=== PATIENT | female | born 1950 | race Caucasian/White ===

== ENCOUNTER 2017-06-13 22:44 | Emergency (ER) | payer MEDICARE, MEDICAID ==
[2017-06-13] MEDS ORDERED: HYDROCODONE/APAP 7.5/325MG TABLET PO ONE (22:59)
--- NOTE | 2017-06-13 23:05 | Emergency Department Record ---
History of Present Illness - General Chief Complaint: Fall Injury Stated Complaint: FALL Time Seen by Provider: 06/13/17 22:59 Source: Patient Mode of Arrival: Stretcher Limitations: No limitations - History of Present Illness Initial Comments: 66 yo female presents to ED with a CC of of left pain following a fall just prior to arrival. Patient reports that she fell walking down a short ramp at her home resulting in injury. Patient also reports striking the left side of her head on the ground, denies LOC or neck pain symptoms. Patient denies numbness, tingling, or weakness to the left UE. Patient also denies injury to the left elbow or shoulder on examination. MD Complaint: Fall Onset/Timin -: Minutes(s) Fall From: Standing When Fall Occurred: Just prior to arrival Fall Witnessed: No Place Fall Occurred: Home Loss of Consciousness: None Prolonged Down Time?: No Symptoms Prior to Fall: None Location - Extremities: Left: Forearm Severity: Moderate Severity scale (1-10): 8 Quality: Sharp, Stabbing Context: Tripped/slipped Associated Symptoms: Denies - [place] Coma Scale Eye Response: (4) Open spontaneously Motor Response: (6) Obeys commands Verbal Response: (5) Oriented [place] Total: 15 - Related Data Previous Rx's Medication Instructions Recorded Hydrocodone/Acetaminophen [Barton 1 each PO Q6H PRN #10 tablet 06/13/17 5-325 Tablet] Allergies Allergy/AdvReac Type Severity Reaction Status Date / Time amoxicillin [Amoxicillin] Allergy Severe ANAPHYLAXIS Verified 06/13/17 22:45 amoxicillin trihydrate Allergy Severe ANAPHYLAXIS Verified 06/13/17 22:45 [From Trimox] Travel Screening - Travel/Exposure Within Last 30 Days Have you traveled within the last 30 days?: No - Travel/Exposure Within Last Year Have you traveled outside the [place] in the last year?: No - Additonal Travel Details Have you been exposed to anyone with a communicable illness?: No - Travel Symptoms Symptom Screening: None Review of Systems Constitutional: Denies: Chills, Fever, Malaise, Night sweats Eyes: Denies: Eye discharge, Eye pain ENT: Denies: Congestion, Ear pain, Epistaxis Respiratory: Denies: Cough, Dyspnea Cardiovascular: Denies: Chest pain, Dyspnea on exertion Endocrine: Denies: Fatigue, Heat or cold intolerance Gastrointestinal: Denies: Abdominal pain, Nausea, Vomiting Genitourinary: Denies: Incontinence, Retention Musculoskeletal: Reports: Arthralgia (left wrist pain). 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?)) - GI Hx GI Disorders: Yes Hx Abdominal Pain: Yes (last 24 hrs-none now) Hx Pancreatitis: Yes (now) Hx Wt Loss/Wt Gain: Yes (60 lbs in last few yrs) - Hx Genitourinary Disorders: No Hx Bladder Problem: Yes (urgency) - ENDOCRINE Hx Endocrine Disorders: Yes Hx Thyroid Disease: Yes (HYPO) - MUSCULOSKELETAL Hx Musculoskeletal Disorders: Yes 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) - PSYCH Hx Psych Problems: No - HEMATOLOGY/ONCOLOGY Hx Hematology/Oncology Disorders: No Family Medical History Any Significant Family History?: Yes Family Hx Comment (NOT TO BE USED IN PLACE OF ITEMS BELOW): DIABETES Hx Cancer: Father Hx Dementia: Father, Mother Hx Diabetes: Mother Hx Heart Disease: Father Hx Resp Disorders: Father, Brother/Sister Hx Seizures: Brother/Sister Hx Stroke: Father *Stroke Comment: TIA Physical Exam - General General Appearance: Alert, Oriented x3, Cooperative, Moderate distress Limitations: No limitations - Head Head exam: Atraumatic, Normocephalic, Other (Mild TTP over the left temporal region) Head exam detail: negative: Abrasion, Contusion, Baxter's sign, General tenderness, Hematoma, Laceration - Eye Eye exam: Normal appearance. negative: Conjunctival injection, Periorbital swelling, Periorbital tenderness, Scleral icterus - ENT Ear exam: negative: Auricular hematoma, Auricular trauma Nasal Exam: negative: Active bleeding, Discharge, Dried blood, Foreign body Mouth exam: negative: Drooling, Laceration, Muffled voice, Tongue elevation - Neck Neck exam: Normal inspection. negative: Meningismus, Tenderness - Respiratory Respiratory exam: Normal lung sounds bilaterally. negative: Rales, Respiratory distress, Rhonchi, Stridor - Cardiovascular Cardiovascular Exam: Regular rate, Normal rhythm, Normal heart sounds Peripheral Pulses: 3+: Radial (L) - GI/Abdominal GI/Abdominal exam: Soft. negative: Rebound, Rigid, Tenderness - Rectal Rectal exam: Deferred - exam: Deferred - Extremities Extremities exam: Tenderness, Other (TTP Over the distal left forearm, no obvious deformity is present. Compartments of the forearm are soft on examination. strong distal radial pulse. No pain with palpation over the elbow/ shoulder, FROM of the fingers distally.). negative: Calf tenderness, Pedal edema - Back Back exam: Denies: CVA tenderness (R), CVA tenderness (L) - Neurological Neurological exam: Alert, Normal gait, Oriented X3 - Psychiatric Psychiatric exam: Normal affect, Normal mood - Skin Skin exam: Normal color. negative: Abrasion Type of lesion: negative: abrasion Course Vital Signs 06/13/17 22:45 Temperature 98.8 F Pulse Rate 79 Respiratory 22 Rate Blood Pressure 115/63 Pulse Ox 99 - Reevaluation(s) Reevaluation #1: 06/13/17 23:31 CT Brain: no acute process Left Wrist: Likely non-displaced distal radius fracture Patient was updated on all results, will place in splint with instructions to follow-up with Dr. Patel next week in the [facility]. Disposition Disposition: Discharge Clinical Impression: Distal radius fracture, left Qualifiers: Encounter type: initial encounter Fracture type: closed Fracture morphology: torus Qualified Code(s): S52.522A - Torus fracture of lower end of left radius, initial encounter for closed fracture Disposition: Home, Self-Care Condition: (2) Stable Instructions: Wrist Fracture in Adults (ED) Additional Instructions: Return to ED if your symptoms worsen or if you have any concerns. Barton as directed. Leave splint in place until seen by Dr. Patel next week. Follow-up in the [facility]ty [facility] next week as directed. Prescriptions: Hydrocodone/Acetaminophen [Barton 5-325 Tablet] 1 each PO Q6H PRN #10 tablet PRN Reason: Pain - Moderate (5-7) Referrals: ZACKERY PATEL [DOCTOR OF OSTEOPATH] - [facility]ics [Provider Group] Forms: Patient Portal Access Time of Disposition: 23:34 Quality - Quality Measures Quality Measures: N/A - Blood Pressure Screening Does Patient Have Any of the Following: No Blood Pressure Classification: Hypertensive Reading Systolic Measurement: 148 Diastolic Measurement: 74 Screening for High Blood Pressure: < Pre-Hypertensive BP, F/U Documented > [ [id number]] Pre-Hypertensive Follow-up Interventions: Referral to alternative/primary care provider.
--- NOTE | 2017-06-16 07:28 | CT SCAN REPORT ---
EXAM: HEAD CT HISTORY: FALL, HEAD INJURY. TECHNIQUE: Noncontrast head CT was obtained. Comparison: None. FINDINGS: The ventricles and subarachnoid spaces are unremarkable. There is no mass or mass effect. No intra or extraaxial hemorrhage. No CT evidence for large acute territorial infarct. No fracture or acute osseous abnormality. Minimal mucosal thickening is seen in the sphenoid sinus. IMPRESSION: UNREMARKABLE HEAD CT WITH NO ACUTE INTRACRANIAL PROCESS. JOB NUMBER: [id number] [facility]
--- NOTE | 2017-06-16 08:11 | RADIOLOGY REPORT ---
DATE: 06/14/2017. EXAM: LEFT WRIST. HISTORY: Pain. Fell today. TECHNIQUE: Four views of the left wrist. COMPARISON: None. ENCOUNTER: Initial. FINDINGS: Subtle areas of lucency are suggested in the distal radius. Nondisplaced fracture cannot be excluded. CT suggested for further assessment. The bones and joints otherwise are unremarkable. The joint spaces are well maintained. IMPRESSION: POSSIBLE NONDISPLACED FRACTURE OF THE DISTAL LEFT RADIUS. CT COULD BE PERFORMED FOR FURTHER ASSESSMENT. LEFT WRIST IS OTHERWISE UNREMARKABLE. JOB NUMBER: [id number] [facility]
== END 2017-06-14 00:04 | disposition home or self-care (01) ==
LOC: ER 22:44
DX: S52.522A Torus fracture of lower end of left radius, initial encounter for closed fracture (principal); R51 Headache; W01.0XXA Fall on same level from slipping, tripping and stumbling without subsequent striking against object, initial encounter; Y92.007 Garden or yard of unspecified non-institutional (private) residence as the place of occurrence of the external cause
CPT/HCPCS: 70450; 99283; 99284

== ENCOUNTER 2018-04-24 11:21 | Observation (INO) | payer MEDICARE, MEDICAID ==
[2018-04-24] MEDS ORDERED: NITROGLYCERIN 0.4MG SL TABLET #25 BTL SL PRN ×2 (11:37→17:18)
[2018-04-24] MEDS ORDERED: ASPIRIN 81 MG CHEWABLE TABLET PO ONE (11:37)
--- NOTE | 2018-04-24 11:48 | Emergency Department Record ---
History of Present Illness - General Chief Complaint: Chest Pain Stated Complaint: CHEST PAIN Time Seen by Provider: 04/24/18 11:24 Source: Patient Mode of Arrival: Ambulatory Limitations: No limitations - History of Present Illness Initial Comments: pt has had chest pain for 3 days that gets worse with inspiration and is getting worse today. it was 8/10 and now is 5/10. no trips, surgeries or leg pain recently. pt has fam hx and htn. MD Complaint: Chest pain Onset/Timin -: Days(s) Pain Location: Left chest Pain Radiation: Back Quality: Sharp Consistency: Constant Improves With: Nothing Worsens With: Inspiration, Movement Anginal Symptoms: Dyspnea Treatments Prior to Arrival: None - Related Data Home Medications Medication Instructions Recorded Confirmed Last Taken Magnesium 200 mg PO DAILY 04/24/18 04/24/18 04/24/18 [place]-3 Fatty Acids/Fish Oil [Fish 1 each PO DAILY 04/24/18 04/24/18 04/24/18 Oil 1,000 mg Capsule] Allergies Allergy/AdvReac Type Severity Reaction Status Date / Time amoxicillin [Amoxicillin] Allergy Severe ANAPHYLAXIS Verified 04/24/18 11:25 amoxicillin trihydrate Allergy Severe ANAPHYLAXIS Verified 04/24/18 11:25 [From Trimox] Travel Screening - Travel/Exposure Within Last 30 Days Have you traveled within the last 30 days?: No Review of Systems Reviewed: No additional complaints except as noted below Constitutional: Reports: As per HPI. Denies: Chills, Fever, Malaise, Night sweats, Weakness, Weight change Eyes: Reports: As per HPI. Denies: Eye discharge, Eye pain, Photophobia, Vision change ENT: Reports: As per HPI. Denies: Congestion, Dental pain, Ear pain, Epistaxis , Hearing loss, Throat pain Respiratory: Reports: As per HPI. Denies: Cough, Dyspnea, Hemoptysis, Stridor, Wheezes Cardiovascular: Reports: As per HPI. Denies: Arrhythmia, Chest pain, Dyspnea on exertion, Edema, Murmurs, Orthopnea, Palpitations, Paroxysmal nocturnal dyspnea, Rheumatic Fever, Syncope Endocrine: Reports: As per HPI. Denies: Fatigue, Heat or cold intolerance, Polydipsia, Polyuria Gastrointestinal: Reports: As per HPI. Denies: Abdominal pain, Constipation, Diarrhea, Hematemesis, Hematochezia, Melena, Nausea, Vomiting Genitourinary: Reports: As per HPI. Denies: Abnormal menses, Discharge, Dyspareunia, Dysuria, Frequency, Hematuria, Incontinence, Retention, Urgency Musculoskeletal: Reports: As per HPI. Denies: Arthralgia, Back pain, Gout, Joint swelling, Myalgia, Neck pain Skin: Reports: As per HPI. Denies: Bruising, Change in color, Change in hair/ nails, Lesions, Pruritus, Rash Neurological: Reports: As per HPI. Denies: Abnormal gait, Confusion, Headache, Numbness, Paresthesias, Seizure, Tingling, Tremors, Vertigo, Weakness Psychiatric: Reports: As per HPI. Denies: Anxiety, Auditory hallucinations, Depression, Homicidal thoughts, Suicidal thoughts, Visual hallucinations Hematological/Lymphatic: Reports: As per HPI. Denies: Anemia, Blood Clots, Easy bleeding, Easy bruising, Swollen glands Past Medical History - SOCIAL HISTORY Smoking Status: Never smoker Alcohol Use: None Drug Use: None - RESPIRATORY Hx Respiratory Disorders: Yes Hx Pneumonia: Yes (as kid) - CARDIOVASCULAR Hx Cardio Disorders: Yes Hx Hypertension: Yes - NEURO Hx Neuro Disorders: Yes Hx Headaches: Yes Hx Neuropathy: Yes - GI Hx GI Disorders: Yes Hx Abdominal Pain: Yes Hx Pancreatitis: Yes Hx Wt Loss/Wt Gain: Yes - Hx Genitourinary Disorders: No Hx Bladder Problem: Yes (urgency) - ENDOCRINE Hx Endocrine Disorders: Yes Hx Thyroid Disease: Yes (HYPO) - MUSCULOSKELETAL Hx Musculoskeletal Disorders: Yes 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) - PSYCH Hx Psych Problems: Yes Hx Anxiety: Yes - HEMATOLOGY/ONCOLOGY Hx Hematology/Oncology Disorders: No Family Medical History Any Significant Family History?: Yes Family Hx Comment (NOT TO BE USED IN PLACE OF ITEMS BELOW): DIABETES Hx Cancer: Father Hx Dementia: Father, Mother Hx Diabetes: Mother Hx Heart Disease: Father Hx Resp Disorders: Father, Brother/Sister Hx Seizures: Brother/Sister Hx Stroke: Father *Stroke Comment: TIA Physical Exam - General General Appearance: Alert, Oriented x3, Cooperative, Mild distress - Head Head exam: Normal inspection - Eye Eye exam: Normal appearance, PERRL, EOMI Pupils: Normal accommodation - ENT ENT exam: Normal exam, Mucous membranes moist, Normal external ear exam, Normal orophraynx Ear exam: Normal external inspection. negative: External canal tenderness Nasal Exam: Normal inspection. negative: Discharge, Sinus tenderness Mouth exam: Normal external inspection, Tongue normal Teeth exam: Normal inspection. negative: Dental caries Throat exam: Normal inspection. negative: Tonsillar erythema, Tonsillar exudate - Neck Neck exam: Normal inspection, Full ROM. negative: Tenderness - Respiratory Respiratory exam: Normal lung sounds bilaterally. negative: Respiratory distress - Cardiovascular Cardiovascular Exam: Regular rate, Normal rhythm, Normal heart sounds - GI/Abdominal GI/Abdominal exam: Soft, Normal bowel sounds. negative: Tenderness - Rectal Rectal exam: Deferred - exam: Deferred - Extremities Extremities exam: Normal inspection, Full ROM, Normal capillary refill. negative: Tenderness - Back Back exam: Reports: Normal inspection, Full ROM. Denies: Muscle spasm, Rash noted, Tenderness - Neurological Neurological exam: Alert, CN II-XII intact, Normal gait, Oriented X3 - Psychiatric Psychiatric exam: Normal affect, Normal mood - Skin Skin exam: Dry, Intact, Normal color, Warm Course - Reevaluation(s) Reevaluation #1: 04/24/18 15:59 pts pain is back up to 10 Medical Decision Making - Lab Data Result diagrams: 04/24/18 11:45 04/24/18 11:45 Disposition Disposition: Admit Clinical Impression: Pleural effusion Chest pain Qualifiers: Chest pain type: chest pain on breathing Qualified Code(s): R07.1 - Chest pain on breathing; R07.81 - Pleurodynia Disposition: Still a Patient at [facility] Decision to Admit: Admit from ER Decision to Admit Date: 04/24/18 Decision to Admit Time: 16:05 Forms: Patient Portal Access Quality - Quality Measures Quality Measures: N/A - Blood Pressure Screening Does Patient Have Any of the Following: Active Dx of HTN Blood Pressure Classification: Hypertensive Reading Systolic Measurement: 145 Diastolic Measurement: 73 Screening for High Blood Pressure: Patient Exclusion, Hx of HTN [G9744]
[2018-04-24 11:56] LABS: BASO % 0.5 % (0-6); EOS % 1.6 % (0-6); GRAN % 60.5 % (47-80); HEMATOCRIT 40.8 % (35.0-47.0); HEMOGLOBIN 13.6 gm/dl (11.6-16.0); MEAN CELL VOLUME 86.6 fl (81-97); MEAN CORPUSCULAR HEMOGLOBIN 28.9 pg (27-33); MEAN CORPUSCULAR HGB CONC 33.3 g/dl (32-36); MEAN PLATELET VOLUME 10.7 fl (7.4-10.4); MONO % 8.4 % (0-9); PLATELET COUNT 172 K/uL (130-400); RED BLOOD COUNT 4.71 M/uL (3.80-5.40); RED CELL DISTRIBUTION WIDTH 13.1 % (11.5-14.5); WHITE BLOOD COUNT W/O DIFF 5.7 K/uL (4.2-12.2)
[2018-04-24 12:23] LABS: BLOOD UREA NITROGEN 12 mg/dL (8-23); CREATININE 0.6 mg/dL (0.5-0.9); EST GLOMERULAR FILTRATION RATE > 60 mL/min
[2018-04-24 12:24] LABS: TOTAL PROTEIN 6.9 g/dL (6.6-8.7)
[2018-04-24 12:26] LABS: GLUCOSE,RANDOM 100 mg/dL (74-109)
[2018-04-24 12:28] LABS: ALT/SGPT 17 U/L (<33); AST/SGOT 26 U/L (10.0-35.0)
[2018-04-24 12:29] LABS: ALB/GLOB RATIO 1.5 (1.1-1.8); ALBUMIN 4.1 g/dL (4.0-5.0); ALKALINE PHOSPHATASE 76 U/L (35-104); CREATINE PHOSPHOKINASE 78 U/L (26-192)
[2018-04-24] MEDS ORDERED: ALBUTEROL SULFATE (0.083%) 2.5 MG/3 ML NEB INH ONE (12:48)
[2018-04-24] MEDS ORDERED: KETOROLAC 30 MG/ML VIAL IVP ONE (15:37)
[2018-04-24] MEDS ORDERED: ONDANSETRON HCL IV 4 MG/2 ML VIAL IVP PRN (17:18)
[2018-04-24] MEDS ORDERED: MORPHINE SULFATE 10 MG/ML VIAL IVP PRN (17:18)
[2018-04-24] MEDS ORDERED: LISINOPRIL 5 MG TABLET PO SCH (17:18)
[2018-04-24] MEDS ORDERED: TEMAZEPAM 15 MG CAPSULE PO PRN (17:18)
[2018-04-24] MEDS ORDERED: INDAPAMIDE 2.5 MG TABLET PO SCH (17:18)
[2018-04-24] MEDS: HYDROCODONE/APAP 5/325MG TABLET PO PRN (17:40)
[2018-04-24] MEDS: LEVOTHYROXINE SODIUM 100 MCG TABLET PO SCH (17:44)
[2018-04-24] MEDS: FUROSEMIDE 20 MG TABLET PO SCH (19:12)
[2018-04-24 20:21] LABS: CKMB 1.4 ng/mL (<3.77)
[2018-04-24] MEDS: DOCUSATE SODIUM 100 MG CAPSULE PO SCH (22:14)
[2018-04-25 04:25] LABS: CHOLESTEROL 136 mg/dL (<200); HDL CHOLESTEROL 71 mg/dL (40-60); TRIGLYCERIDES 40 mg/dL (<150); VLDL CHOLESTEROL 8 mg/dL (10.00-40.00)
[2018-04-25 04:29] LABS: CKMB 1.2 ng/mL (<3.77)
[2018-04-25] MEDS: HYDROCODONE/APAP 5/325MG TABLET PO PRN ×2 (06:24→11:23)
[2018-04-25] MEDS: LEVOTHYROXINE SODIUM 100 MCG TABLET PO SCH (06:25)
--- NOTE | 2018-04-25 09:21 | History & Physical ---
History of Present Illness - Date of Service Date of Service for History & Physical: 04/25/18 - History of Present Illness Admitting Diagnosis: chest pain, pleural effusion History of Present Illness: Mrs. Streeter is a 67 y/o female who presented to with acute onset left sided pleuritic chest pain. The patient says that her pain has been ongoing for the past three days but got worse yesterday, 8/10 in severity. The patient denies history of coronary artery disease and did not have palpitations, shortness of breath or radiation of her pain. The patient does have medical history of hypertension and sleep apnea. She does not smoke, use alcohol or use any drugs. Workup in the Ed revealed that the patient had a moderate left lung pleural effusion but no other acute process identified. CTA was not suggestive of pulmonary embolism and basic metabolic panel and CBC w/ diff were within normal limits. The patient is admitted to observation for IV diuresis and pain management. Vitals on admission: BP: 144/80 HR: 70 RR: 16 Sats: 94% RA T: 98 PCP: Dr. Troncoso Travel Screening - Travel/Exposure Within Last 30 Days Have you traveled within the last 30 days?: No - Travel/Exposure Within Last Year Have you traveled outside the [place] in the last year?: No - Additonal Travel Details Have you been exposed to anyone with a communicable illness?: No - Travel Symptoms Symptom Screening: None Review of Systems Constitutional: Reports: As per HPI. Denies: Chills, Fever, Malaise, Night sweats, Weakness, Weight change Eyes: Reports: As per HPI. Denies: Eye discharge, Eye pain, Photophobia, Vision change ENT: Reports: As per HPI. Denies: Congestion, Dental pain, Ear pain, Epistaxis , Hearing loss, Throat pain Respiratory: Reports: As per HPI. Denies: Cough, Dyspnea, Hemoptysis, Stridor, Wheezes Cardiovascular: Reports: As per HPI. Denies: Arrhythmia, Chest pain, Dyspnea on exertion, Edema, Murmurs, Orthopnea, Palpitations, Paroxysmal nocturnal dyspnea, Rheumatic Fever, Syncope Endocrine: Reports: As per HPI. Denies: Fatigue, Heat or cold intolerance, Polydipsia, Polyuria Gastrointestinal: Reports: As per HPI. Denies: Abdominal pain, Constipation, Diarrhea, Hematemesis, Hematochezia, Melena, Nausea, Vomiting Genitourinary: Reports: As per HPI. Denies: Abnormal menses, Discharge, Dyspareunia, Dysuria, Frequency, Hematuria, Incontinence, Retention, Urgency Musculoskeletal: Reports: As per HPI. Denies: Arthralgia, Back pain, Gout, Joint swelling, Myalgia, Neck pain Skin: Reports: As per HPI. Denies: Bruising, Change in color, Change in hair/ nails, Lesions, Pruritus, Rash Neurological: Reports: As per HPI. Denies: Abnormal gait, Confusion, Headache, Numbness, Paresthesias, Seizure, Tingling, Tremors, Vertigo, Weakness Psychiatric: Reports: As per HPI. Denies: Anxiety, Auditory hallucinations, Depression, Homicidal thoughts, Suicidal thoughts, Visual hallucinations Hematological/Lymphatic: Reports: As per HPI. Denies: Anemia, Blood Clots, Easy bleeding, Easy bruising, Swollen glands Past Medical History - SOCIAL HISTORY Smoking Status: Never smoker Alcohol Use: None Drug Use: None - RESPIRATORY Hx Respiratory Disorders: Yes Hx Pneumonia: Yes (as kid) - CARDIOVASCULAR Hx Cardio Disorders: Yes Hx Hypertension: Yes - NEURO Hx Neuro Disorders: Yes Hx Headaches: Yes Hx Neuropathy: Yes - GI Hx GI Disorders: Yes Hx Abdominal Pain: Yes Hx Pancreatitis: Yes Hx Wt Loss/Wt Gain: Yes (lost 85 pounds over 6 years) - Hx Genitourinary Disorders: No Hx Bladder Problem: Yes (urgency) - ENDOCRINE Hx Endocrine Disorders: Yes Hx Thyroid Disease: Yes (HYPO) - MUSCULOSKELETAL Hx Musculoskeletal Disorders: Yes 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) - PSYCH Hx Psych Problems: Yes Hx Anxiety: Yes - HEMATOLOGY/ONCOLOGY Hx Hematology/Oncology Disorders: No Family Medical History Any Significant Family History?: Yes Family Hx Comment (NOT TO BE USED IN PLACE OF ITEMS BELOW): DIABETES Hx Cancer: Father Hx Dementia: Father, Mother Hx Diabetes: Mother Hx Heart Disease: Father Hx Resp Disorders: Father, Brother/Sister Hx Seizures: Brother/Sister Hx Stroke: Father *Stroke Comment: TIA H&P Meds/Allergies - Allergies Allergies: Allergies Allergy/AdvReac Type Severity Reaction Status Date / Time amoxicillin [Amoxicillin] Allergy Severe ANAPHYLAXIS Verified 04/24/18 11:25 amoxicillin trihydrate Allergy Severe ANAPHYLAXIS Verified 04/24/18 11:25 [From Trimox] - Home Medications Home Medications Medication Instructions Recorded Confirmed Last Taken Magnesium 200 mg PO DAILY 04/24/18 04/24/18 04/24/18 [place]-3 Fatty Acids/Fish Oil [Fish 1 each PO DAILY 04/24/18 04/24/18 04/24/18 Oil 1,000 mg Capsule] - Active Medications Active Medications: Current Medications Hydrocodone Bitart/Acetaminophen ([place] 5mg/325mg) 1 each PO Q4H PRN PRN Reason: PAIN - MOD TO SEVERE (5-10) Last Admin: 04/25/18 06:24 Dose: 1 each Aspirin (Ecotrin (Ec)) 325 mg PO DAILY [facility] Docusate Sodium (Colace) 100 mg PO BID [facility] Last Admin: 04/24/18 22:14 Dose: Not Given Furosemide (Lasix) 20 mg PO BIDDIUR [facility] Last Admin: 04/24/18 19:12 Dose: 20 mg Indapamide (Lozol) 2.5 mg PO QD [facility] Last Admin: 04/24/18 17:43 Dose: Not Given Levothyroxine Sodium (Synthroid) 100 mcg PO DAILYTHY [facility] Last Admin: 04/25/18 06:25 Dose: 100 mcg Lisinopril (Zestril) 5 mg PO QD [facility] Last Admin: 04/24/18 17:44 Dose: Not Given Magnesium Oxide (Mag Ox) 200 mg PO DAILY [facility] Morphine Sulfate (Morphine Sulfate) 2 mg IVP Q4H PRN PRN Reason: CHEST PAIN Nitroglycerin (Nitrostat 0.4mg) 0.4 mg SL Q5MIN PRN PRN Reason: CHEST PAIN Ondansetron HCl (Zofran) 4 mg IVP Q6H PRN PRN Reason: NAUSEA Temazepam (Restoril) 15 mg PO QHS PRN PRN Reason: INSOMNIA Physical Exam - Vital Signs Vital Signs: Vital Signs - Last 24 Hrs Temp Pulse Pulse Pulse Resp BP BP 04/25/18 09:05 86 18 04/25/18 08:35 70 16 04/25/18 04:00 98.0 F 69 20 144/80 04/24/18 21:00 62 18 04/24/18 20:00 99.2 F 67 20 116/60 04/24/18 17:58 82 20 04/24/18 17:18 99.1 F 73 18 110/58 04/24/18 16:50 98.1 F 72 20 139/64 04/24/18 16:45 75 20 139/64 04/24/18 16:17 63 18 158/73 04/24/18 13:48 63 20 137/65 04/24/18 11:58 74 20 125/69 04/24/18 11:52 58 L 18 152/74 04/24/18 11:44 98.3 F 69 17 145/73 04/24/18 11:22 98.3 F 67 20 145/73 Pulse Ox 04/25/18 09:05 94 L 04/25/18 08:35 04/25/18 04:00 97 04/24/18 21:00 04/24/18 20:00 97 04/24/18 17:58 04/24/18 17:18 95 04/24/18 16:50 98 04/24/18 16:45 04/24/18 16:17 96 04/24/18 13:48 97 04/24/18 11:58 98 04/24/18 11:52 100 04/24/18 11:44 99 04/24/18 11:22 99 - General General Appearance: Alert, Oriented x3, Cooperative, Mild distress Limitations: No limitations - Head Head exam: Normal inspection - Eye Eye exam: Normal appearance, PERRL, EOMI Pupils: Normal accommodation - ENT ENT exam: Normal exam, Mucous membranes moist, Normal external ear exam, Normal orophraynx Ear exam: Normal external inspection. negative: External canal tenderness Nasal Exam: Normal inspection. negative: Discharge, Sinus tenderness Mouth exam: Normal external inspection, Tongue normal Teeth exam: Normal inspection. negative: Dental caries Throat exam: Normal inspection. negative: Tonsillar erythema, Tonsillar exudate - Neck Neck exam: Normal inspection, Full ROM. negative: Tenderness - Respiratory Respiratory exam: Normal lung sounds bilaterally. negative: Respiratory distress - Cardiovascular Cardiovascular Exam: Regular rate, Normal rhythm, Normal heart sounds - GI/Abdominal GI/Abdominal exam: Soft, Normal bowel sounds. negative: Tenderness - Rectal Rectal exam: Deferred - exam: Deferred - Extremities Extremities exam: Normal inspection, Full ROM, Normal capillary refill. negative: Tenderness - Back Back exam: Reports: Normal inspection, Full ROM. Denies: Muscle spasm, Rash noted, Tenderness - Neurological Neurological exam: Alert, CN II-XII intact, Normal gait, Oriented X3 - Psychiatric Psychiatric exam: Normal affect, Normal mood - Skin Skin exam: Dry, Intact, Normal color, Warm Results - Labs Result Diagrams: 04/24/18 11:45 04/24/18 11:45 Labs Last 24 Hours: Laboratory Results - last 24 hr 04/24/18 04/24/18 04/24/18 11:45 11:45 11:45 WBC 5.7 RBC 4.71 Hgb 13.6 Hct 40.8 MCV 86.6 MCH 28.9 MCHC 33.3 RDW 13.1 Plt Count 172 MPV 10.7 H Gran % 60.5 Lymphocytes % 29.0 Monocytes % 8.4 Eosinophils % 1.6 Basophils % 0.5 D-Dimer 0.46 Sodium 135 L Potassium 3.5 Chloride 98 Carbon Dioxide 26.0 Anion Gap 11.0 BUN 12 Creatinine 0.6 Estimated GFR > 60 Random Glucose 100 Calcium 10.0 Total Bilirubin 3.10 H Direct Bilirubin AST 26 ALT 17 Alkaline Phosphatase 76 Creatine Kinase 78 CK-MB (CK-2) 2.0 Troponin T < 0.010 Total Protein 6.9 Albumin 4.1 Globulin 2.8 Albumin/Globulin Ratio 1.5 Triglycerides Cholesterol LDL Cholesterol [place] VLDL Cholesterol HDL Cholesterol 04/24/18 04/24/18 04/24/18 11:45 20:00 20:00 WBC RBC Hgb Hct MCV MCH MCHC RDW Plt Count MPV Gran % Lymphocytes % Monocytes % Eosinophils % Basophils % D-Dimer Sodium Potassium Chloride Carbon Dioxide Anion Gap BUN Creatinine Estimated GFR Random Glucose Calcium Total Bilirubin Direct Bilirubin 0.2 AST ALT Alkaline Phosphatase Creatine Kinase CK-MB (CK-2) 1.4 Cancelled Troponin T < 0.010 Total Protein Albumin Globulin Albumin/Globulin Ratio Triglycerides Cholesterol LDL Cholesterol [place] VLDL Cholesterol HDL Cholesterol 04/25/18 04/25/18 04/25/18 04:00 04:00 04:00 WBC RBC Hgb Hct MCV MCH MCHC RDW Plt Count MPV Gran % Lymphocytes % Monocytes % Eosinophils % Basophils % D-Dimer Sodium Potassium Chloride Carbon Dioxide Anion Gap BUN Creatinine Estimated GFR Random Glucose Calcium Total Bilirubin Direct Bilirubin AST ALT Alkaline Phosphatase Creatine Kinase CK-MB (CK-2) 1.2 Cancelled Troponin T < 0.010 Total Protein Albumin Globulin Albumin/Globulin Ratio Triglycerides Cancelled 40 Cholesterol Cancelled 136 LDL Cholesterol [place] Cancelled 76.0 VLDL Cholesterol Cancelled 8 HDL Cholesterol Cancelled 71 H VTE H&P Assessment - Risk for VTE Risk for VTE: Yes Risk Level: High Risk Assessment Date: 04/25/18 Risk Assessment Time: 09:27 VTE Orders Placed or Will Be Placed: Yes Plan - Detailed Diagnosis and Plan (1) Chest pain Current Visit: Yes Status: Acute Qualifiers: Chest pain type: chest pain on breathing Qualified Code(s): R07.1 - Chest pain on breathing; R07.81 - Pleurodynia Base Code: R07.9 - CHEST PAIN, UNSPECIFIED Comment: 04/25/18: - Pleuritic type chest pain x 3 days. - EKG: NSR, no acute ST-T abnormalities, Qtc 421, vent rate 68. - Troponins negative x 2, no abnormal rhythms on monitor. - No improvement with nitrostat. - likely chest wall irriatation due to pleural effusion. (2) Pleural effusion on left Current Visit: Yes Status: Acute Base Code: J90 - PLEURAL EFFUSION, NOT ELSEWHERE CLASSIFIED Comment: 04/25/18: - Left pleural effusion, moderate in size, no masses or opacities. Etiology is unclear. DDx include autoimmune, viral, liver cirrhosis, pancreatitis, heart failure, PE r/o. - D- dimer 0.46, CTA negative for PE. Liver enzymes normal. - Lasix 20mg BID, [place] 5/325mg Q4H PRN - Repeat chest xray as outpatient (3) HTN (hypertension) Current Visit: Yes Status: Acute Base Code: I10 - ESSENTIAL (PRIMARY) HYPERTENSION Comment: - 04/25/18: - BP 144/80 - resume Lisinopril 5mg and Indapamide 2.5mg daily. (4) DVT prophylaxis Current Visit: No Status: Acute Base Code: [id number] - Comment: 04/25/18: - Lovenox 40mg sq daily (5) Full code status Current Visit: Yes Status: Acute Base Code: Z78.9 - OTHER SPECIFIED HEALTH STATUS Comment: 04/25/18: - pt is full code - Disposition D/C home with pain management and cont po diuersis. Follow up with PCP for repeat chest xray in 1 week.
[2018-04-25] MEDS: FUROSEMIDE 20 MG TABLET PO SCH (09:52)
[2018-04-25] MEDS: DOCUSATE SODIUM 100 MG CAPSULE PO SCH (09:52)
[2018-04-25] MEDS ORDERED: ENOXAPARIN 40 MG/0.4 ML SYR SQ SCH (10:00)
[2018-04-25] MEDS ORDERED: MAGNESIUM OXIDE 400 MG TABLET PO SCH (10:00)
[2018-04-25] MEDS ORDERED: ASPIRIN 325 MG TAB ENTERIC-COATED PO SCH (10:00)
--- NOTE | 2018-04-25 10:51 | Discharge Summary ---
Providers Discharge Summary Date: 04/25/18 Date of admission: 04/24/18 16:52 Attending physician: CHRISTIAN RTONCOSO Primary care physician: CHRISTIAN TRONCOSO Physical Exam - Vital Signs Vital Signs: Vital Signs - Last 24 Hrs Temp Pulse Pulse Pulse Resp BP BP 04/25/18 09:05 86 18 04/25/18 08:35 70 16 04/25/18 08:00 97.6 F 62 20 136/78 04/25/18 04:00 98.0 F 69 20 144/80 04/24/18 21:00 62 18 04/24/18 20:00 99.2 F 67 20 116/60 04/24/18 17:58 82 20 04/24/18 17:18 99.1 F 73 18 110/58 04/24/18 16:50 98.1 F 72 20 139/64 04/24/18 16:45 75 20 139/64 04/24/18 16:17 63 18 158/73 04/24/18 13:48 63 20 137/65 04/24/18 11:58 74 20 125/69 04/24/18 11:52 58 L 18 152/74 04/24/18 11:44 98.3 F 69 17 145/73 04/24/18 11:22 98.3 F 67 20 145/73 Pulse Ox 04/25/18 09:05 94 L 04/25/18 08:35 04/25/18 08:00 98 04/25/18 04:00 97 04/24/18 21:00 04/24/18 20:00 97 04/24/18 17:58 04/24/18 17:18 95 04/24/18 16:50 98 04/24/18 16:45 04/24/18 16:17 96 04/24/18 13:48 97 04/24/18 11:58 98 04/24/18 11:52 100 04/24/18 11:44 99 04/24/18 11:22 99 - General General Appearance: Alert, Oriented x3, Cooperative, Mild distress Limitations: No limitations - Head Head exam: Normal inspection - Eye Eye exam: Normal appearance, PERRL, EOMI Pupils: Normal accommodation - ENT ENT exam: Normal exam, Mucous membranes moist, Normal external ear exam, Normal orophraynx Ear exam: Normal external inspection. negative: External canal tenderness Nasal Exam: Normal inspection. negative: Discharge, Sinus tenderness Mouth exam: Normal external inspection, Tongue normal Teeth exam: Normal inspection. negative: Dental caries Throat exam: Normal inspection. negative: Tonsillar erythema, Tonsillar exudate - Neck Neck exam: Normal inspection, Full ROM. negative: Tenderness - Respiratory Respiratory exam: Normal lung sounds bilaterally. negative: Respiratory distress - Cardiovascular Cardiovascular Exam: Regular rate, Normal rhythm, Normal heart sounds Peripheral Pulses: 2+: Radial (R), Radial (L), 3+: Dorsalis Pedis (R), Dorsalis Pedis (L) - GI/Abdominal GI/Abdominal exam: Soft, Normal bowel sounds. negative: Tenderness - Rectal Rectal exam: Deferred - exam: Deferred - Extremities Extremities exam: Normal inspection, Full ROM, Normal capillary refill. negative: Tenderness - Back Back exam: Reports: Normal inspection, Full ROM. Denies: Muscle spasm, Rash noted, Tenderness - Neurological Neurological exam: Alert, CN II-XII intact, Normal gait, Oriented X3 - Psychiatric Psychiatric exam: Normal affect, Normal mood - Skin Skin exam: Dry, Intact, Normal color, Warm Hospitalization - Hospitalization Admission Diagnosis: chest pain, pleural effusion - Problem List/Discharge Diagnosis (1) Chest pain Current Visit: Yes Status: Acute Discharge Diagnosis: Chest pain type: chest pain on breathing Qualified Code(s): R07.1 - Chest pain on breathing; R07.81 - Pleurodynia Base Code: R07.9 - CHEST PAIN, UNSPECIFIED Comment: 04/25/18: - Pleuritic type chest pain x 3 days. - EKG: NSR, no acute ST-T abnormalities, Qtc 421, vent rate 68. - Troponins negative x 2, no abnormal rhythms on monitor. - No improvement with nitrostat. - likely chest wall irriatation due to pleural effusion. (2) Pleural effusion on left Current Visit: Yes Status: Acute Base Code: J90 - PLEURAL EFFUSION, NOT ELSEWHERE CLASSIFIED Comment: 04/25/18: - Left pleural effusion, moderate in size, no masses or opacities. Etiology is unclear. DDx include autoimmune, viral, liver cirrhosis, pancreatitis, heart failure, PE r/o. - D- dimer 0.46, CTA negative for PE. Liver enzymes normal. - Lasix 20mg BID, [place] 5/325mg Q4H PRN - Repeat chest xray as outpatient (3) HTN (hypertension) Current Visit: Yes Status: Acute Base Code: I10 - ESSENTIAL (PRIMARY) HYPERTENSION Comment: - 04/25/18: - BP 144/80 - resume Lisinopril 5mg and Indapamide 2.5mg daily. (4) DVT prophylaxis Current Visit: No Status: Acute Base Code: [id number] - Comment: 04/25/18: - Lovenox 40mg sq daily (5) Full code status Current Visit: Yes Status: Acute Base Code: Z78.9 - OTHER SPECIFIED HEALTH STATUS Comment: 04/25/18: - pt is full code - Disposition D/C home with pain management and cont po diuersis. Follow up with PCP for repeat chest xray in 1 week. - Hospitalization Course Hospital Course: Mrs. Streeter is a 67 y/o female who presented to with acute onset left sided pleuritic chest pain. The patient says that her pain has been ongoing for the past three days but got worse yesterday, 04/10 in severity. The patient denies history of coronary artery disease and did not have palpitations, shortness of breath or radiation of her pain. The patient does have medical history of hypertension and sleep apnea. She does not smoke, use alcohol or use any drugs. Workup in the Ed revealed that the patient had a moderate left lung pleural effusion but no other acute process identified. CTA was not suggestive of pulmonary embolism and basic metabolic panel and CBC w/ diff were within normal limits. The patient is admitted to observation for IV diuresis and pain management. Vitals on admission: BP: 144/80 HR: 70 RR: 16 Sats: 94% RA T: 98 PCP: Dr. Troncoso Procedures: Imaging and X-Rays 04/24/18 12:35 CXR [CHEST 2 VIEWS] [RAD] Stat 04/24/18 13:41 CHEST CTA w contrast [CTA] Stat Cardiology Procedures 04/24/18 11:33 EKG NOW 04/24/18 15:40 [employer] Plant Technician NOW 04/24/18 17:18 EKG QDX2@0600 Abnormal Labs: Abnormal Lab Results 04/24/18 04/24/18 04/25/18 Range/Units 11:45 11:45 04:00 MPV 10.7 H (7.4-10.4) fl Sodium 135 L (136-145) mmol/L Total Bilirubin 3.10 H (0.2-1.0) mg/dL HDL Cholesterol 71 H (40-60) mg/dL Discharge Medications - Discharge Medications Prescriptions: Furosemide [Lasix] 20 mg PO BIDDIUR 7 Days #14 tablet Hydrocodone/APAP 5/325Mg [[place] 5Mg/325Mg] 1 each PO Q4H PRN #30 tab PRN Reason: Pain - Mod To Severe (5-10) Home Medications: Ambulatory Orders Ascorbic Acid [Vitamin C] 500 mg PO DAILY tab 12/04/16 [Last Taken 06/13/17] Biotin 1 mg PO DAILY cap 12/04/16 [Last Taken 06/13/17] Garlic 1 each PO DAILY tab 12/04/16 [Last Taken 04/24/18] Multivitamin [Multi-Day Vitamins] 1 each PO DAILY tab 12/04/16 [Last Taken ] Magnesium 200 mg PO DAILY 04/24/18 [Last Taken 04/24/18] [place]-3 Fatty Acids/Fish Oil [Fish Oil 1,000 mg Capsule] 1 each PO DAILY [Last Taken 04/24/18] Furosemide [Lasix] 20 mg PO BIDDIUR 7 Days #14 tablet 04/25/18 [Last Taken Unknown] Hydrocodone/APAP 5/325Mg [[place] 5Mg/325Mg] 1 each PO Q4H PRN #30 tab 04/25/18 [ Last Taken Unknown] Discharge Plan - Discharge Instructions Activity at Discharge: Resume Usual Activities As Tolerated Diet at Discharge: Diabetic Diet, Low Salt Diet Additional Instructions: Continue to take Lasix 20mg twice daily for the next 7 days. Within 1 week please have a follow up chest xray done. Follow up with [facility] within 1-2 weeks. Quality Measures - Quality Measures Quality Measures: Advance Directives, Documentation of Current Medications in Medical Record, Elder Maltreatment Screen and Follow-Up Plan, Screening for High Blood Pressure and F/U Documented - Current Medications Quality Measure: Measure #130: Documentation of Current Medications Documentation of Current Medications: <Current Medications Documented/Reviewed> [G8427] - Blood Pressure Screening Quality Measure: Screening for High Blood Pressure and Follow-Up Documented Does Patient Have Any of the Following: Active Dx of HTN Blood Pressure Classification: Hypertensive Reading Systolic Measurement: 145 Diastolic Measurement: 73 Screening for High Blood Pressure: Patient Exclusion, Hx of HTN [G9744] - Advance Directives Quality Measure: Measure #47: Care Plan Advance Directives Established: No Advance Directives Information Provided To Patient: No Advance Directives on File: No Living Will: No Power of Supervisor Specialty Plant: No Advance Care Planning: <Care Plan/Decision Maker Documented; Discussed & Documented> [[id number]] - Elder Abuse Suspicion Index Screening: Elder Abuse Suspicion Index Screening Rely on people for bathing, dressing, shopping, banking, etc: No Prevented from getting food, clothes, medication, etc: No Made to feel shamed or threatened by someone: No Forced to sign papers or use money against will: No Feel afraid, touched in ways not wanted or hurt physically: No Poor eye contact, withdrawn, malnourished, cuts or bruises: No Screening Result: Negative result EASI Reference Information: Liz CASTRO, Nancy C, Billy D, Tatianna Franklin.Development and validation of a tool to assist physicians identification of elder abuse: The Elder Abuse Suspicion Index (EASI ). Journal of Elder Abuse and Neglect, 2008; 20 (3): 276-300. - Elder Maltreatment Screen Quality Measures: Elder Maltreatment Screen and Follow-Up Plan Elder Maltreatment Screen: <Negative, No Follow-Up Plan Required> [G8734]
--- NOTE | 2018-04-26 09:15 | RADIOLOGY REPORT ---
EXAM: CHEST 2 VIEWS COMPARISON: 10/08/2015. HISTORY: DIFFICULTY IN BREATHING. TECHNIQUE: Frontal and lateral views of the chest were performed. FINDINGS: Heart size is normal. No pulmonary vascular congestion. There is a small left pleural effusion. Lung garcía are clear. Osseous structures are normal. IMPRESSION: SMALL LEFT PLEURAL EFFUSION. JOB NUMBER: [id number] MTDD
--- NOTE | 2018-04-26 09:33 | CT ANGIOGRAM REPORT ---
EXAM: CT ANGIOGRAM CHEST CTA w contrast HISTORY: DIFFICULTY IN BREATHING. TECHNIQUE: CTA of the chest was performed after intravenous administration of 80 mL of Omnipaque-350 contrast material. Sagittal and coronal MIP images were performed on an independent workstation. FINDINGS: There is suboptimal timing of the contrast bolus. This is nondiagnostic for pulmonary embolism. Heart size is normal. There is a small left pleural effusion. The right hemithorax is clear. The visualized upper abdominal structures are normal. IMPRESSION: SUBOPTIMAL TIMING OF THE CONTRAST BOLUS. THIS IS NONDIAGNOSTIC FOR PULMONARY EMBOLISM. THERE IS A SMALL LEFT PLEURAL EFFUSION, WHICH CAN BE SEEN WITH PULMONARY EMBOLISM. THE REMAINDER OF THE LUNG SPENCE ARE CLEAR. JOB NUMBER: [id number] MTDD
== END 2018-04-25 11:30 | disposition home or self-care (01) ==
LOC: ER 11:21 → MEDSURG 16:52
PROVIDERS: ADMIT Internal Medicine; ATTEND Internal Medicine
DX: R07.1 Chest pain on breathing (principal); J90 Pleural effusion, not elsewhere classified; I10 Essential (primary) hypertension; E03.9 Hypothyroidism, unspecified; G62.9 Polyneuropathy, unspecified; M17.0 Bilateral primary osteoarthritis of knee; Z87.19 Personal history of other diseases of the digestive system
CPT/HCPCS: 82550; 82248; 85025; 82553 ×2; 80053; 80061; 84484 ×2; 85379; 71046; 71275; 93005 ×2; 93010; G0378 ×2; Q9967; J1885; 96374; 99220; 99285; J1650

== ENCOUNTER 2018-06-26 13:59 | Emergency (ER) | payer MEDICARE, MEDICAID ==
--- NOTE | 2018-06-26 14:21 | Emergency Department Record ---
History of Present Illness - General Chief Complaint: Syncope Stated Complaint: SYNCOPY Time Seen by Provider: 06/26/18 14:09 Source: Patient Mode of Arrival: EMS Limitations: No limitations - History of Present Illness Initial Comments: The patient is here due to possibly passing out for a few seconds at home a half hour ago. She was on the [place]ONE[place] straining to have a BM and then got up and felt lightheaded. She then went to wash her hands and then fell and possibly passed out for a few seconds. She then felt back to normal and called 911. Since she has felt fine with no dizziness or lightheadedness. The patient has a hx of becoming lightheaded after getting up from the [employer] in the past. She denied any Cp, SOB, Palp, or VINES prior to the episode or since. The patient also denies any cardiac issues. The patient also denies any injury from possibly passing out. Specifically she denies any VINES, neck pain, back pain or blurred vision. MD Complaint: Almost passed out, [place] faint Onset/Timin -: Minutes(s) Prodromal Symptoms: Lightheaded Current Symptoms: None Context: Standing up, Other Treatments Prior to Arrival: None - Related Data Previous Rx's Medication Instructions Recorded Furosemide [Lasix] 20 mg PO BIDDIUR 7 Days #14 tablet 04/25/18 Allergies Allergy/AdvReac Type Severity Reaction Status Date / Time amoxicillin [Amoxicillin] Allergy Severe ANAPHYLAXIS Unverified 05/05/18 07:52 amoxicillin trihydrate Allergy Severe ANAPHYLAXIS Unverified 05/05/18 07:52 [From Trimox] Travel Screening - Travel/Exposure Within Last 30 Days Have you traveled within the last 30 days?: No Review of Systems Constitutional: Denies: Chills, Fever Eyes: Denies: Eye discharge ENT: Denies: Congestion, Throat pain Respiratory: Denies: Dyspnea Past Medical History - SOCIAL HISTORY Smoking Status: Never smoker - RESPIRATORY Hx Respiratory Disorders: Yes Hx Pneumonia: Yes (as kid) - CARDIOVASCULAR Hx Cardio Disorders: Yes Hx Hypertension: Yes - NEURO Hx Neuro Disorders: Yes Hx Headaches: Yes Hx Neuropathy: Yes - GI Hx GI Disorders: Yes Hx Abdominal Pain: Yes Hx Pancreatitis: Yes Hx Wt Loss/Wt Gain: Yes (lost 85 pounds over 6 years) - Hx Genitourinary Disorders: No Hx Bladder Problem: Yes (urgency) - ENDOCRINE Hx Endocrine Disorders: Yes Hx Thyroid Disease: Yes (HYPO) - MUSCULOSKELETAL Hx Musculoskeletal Disorders: Yes 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) - PSYCH Hx Psych Problems: Yes Hx Anxiety: Yes - HEMATOLOGY/ONCOLOGY Hx Hematology/Oncology Disorders: No Family Medical History Any Significant Family History?: Yes Family Hx Comment (NOT TO BE USED IN PLACE OF ITEMS BELOW): DIABETES Hx Cancer: Father Hx Dementia: Father, Mother Hx Diabetes: Mother Hx Heart Disease: Father Hx Resp Disorders: Father, Brother/Sister Hx Seizures: Brother/Sister Hx Stroke: Father *Stroke Comment: TIA Physical Exam - General General Appearance: Alert, Oriented x3, Cooperative, No acute distress - Head Head exam: Atraumatic, Normocephalic, Normal inspection - Eye Eye exam: Normal appearance, PERRL, EOMI - Neck Neck exam: Normal inspection, Full ROM. negative: Tenderness - Respiratory Respiratory exam: Normal lung sounds bilaterally. negative: Respiratory distress - Cardiovascular Cardiovascular Exam: Regular rate, Normal rhythm, Normal heart sounds. negative : Diastolic murmur, Systolic murmur - GI/Abdominal GI/Abdominal exam: Soft, Normal bowel sounds. negative: Tenderness - Extremities Extremities exam: Normal inspection, Full ROM, Normal capillary refill. negative: Tenderness - Neurological Neurological exam: Alert. negative: Motor sensory deficit Course Vital Signs 06/26/18 14:03 Temperature 98.8 F Pulse Rate 71 Respiratory 18 Rate Blood Pressure 134/101 Pulse Ox 98 - Reevaluation(s) Reevaluation #1: The patient is doing very well at this time. She is up walking with no dizziness or lightheadedness and denies any CP or SOB. I did discuss the results of the labs and EKG and CXR with the patient. Due to the patient being 67 years old I did recommend a short stay admission to monitor her heart but she is refusing that plan. The patient understands the risks of refusing the admission are that she could go home and have an arrhythmia, stroke, repeat syncope, traumatic injury and . The understands and accepts the risks and accepts the fact we cannot be held liable for NOT admitting her to the hospital. Presently the patient has proper decision making capacity and was told to see her PCP next week for recheck. 06/26/18 15:46 Medical Decision Making - Data Complexity MDM Data: Labs Ordered and/or Reviewed, X-Ray Ordered and/or Reviewed, EKG Ordered and/or Reviewed - Lab Data Result diagrams: 06/26/18 14:15 06/26/18 14:15 - EKG Data -: EKG Interpreted by Me EKG: No Acute Changes, Normal EKG - Radiology Data Radiology results: Report reviewed (CXR: poss mild PVC, Neg for acute changes.) Disposition Disposition: Discharge Clinical Impression: Vasovagal near-syncope Disposition: Home, Self-Care Condition: (2) Stable Instructions: Syncope (ED) Additional Instructions: Please continue your regular medicines and please see your family doctor next week for recheck. Return to the ER for any repeat dizziness, lightheadedness, CP , SOB, or ADRIAN. Forms: Patient Portal Access Time of Disposition: 15:50 Quality - Quality Measures Quality Measures: N/A - Blood Pressure Screening View Details: Yes Does Patient Have Any of the Following: Active Dx of HTN Blood Pressure Classification: Hypertensive Reading Systolic Measurement: 134 Diastolic Measurement: 101 Screening for High Blood Pressure: Patient Exclusion, Hx of HTN [G9744]
[2018-06-26 14:48] LABS: BASO % 0.8 % (0-6); EOS % 2.8 % (0-6); GRAN % 47.7 % (47-80); HEMATOCRIT 43.3 % (35.0-47.0); HEMOGLOBIN 14.1 gm/dl (11.6-16.0); LYMPH % 42.2 % (16-45); MEAN CELL VOLUME 86.6 fl (81-97); MEAN CORPUSCULAR HEMOGLOBIN 28.2 pg (27-33); MEAN CORPUSCULAR HGB CONC 32.6 g/dl (32-36); MEAN PLATELET VOLUME 10.8 fl (7.4-10.4); MONO % 6.5 % (0-9); PLATELET COUNT 213 K/uL (130-400); RED CELL DISTRIBUTION WIDTH 13.3 % (11.5-14.5)
[2018-06-26 14:59] LABS: BLOOD UREA NITROGEN 14 mg/dL (8-23); CREATININE 0.7 mg/dL (0.5-0.9); EST GLOMERULAR FILTRATION RATE > 60 mL/min
[2018-06-26 15:01] LABS: GLUCOSE,RANDOM 119 mg/dL (74-109)
[2018-06-26 15:04] LABS: ALB/GLOB RATIO 1.4 (1.1-1.8); ALBUMIN 4.1 g/dL (4.0-5.0); ALKALINE PHOSPHATASE 81 U/L (35-104); ALT/SGPT 19 U/L (<33); AST/SGOT 34 U/L (10.0-35.0)
--- NOTE | 2018-06-28 19:07 | RADIOLOGY REPORT ---
EXAM: CHEST 2 VIEWS HISTORY: FALL. TECHNIQUE: PA and lateral views of the chest. COMPARISON: Chest radiograph 05/05/2018. FINDINGS: Cardiac silhouette is stable in size. Possible mild pulmonary vascular congestion. No focal pulmonary consolidation seen. No pleural effusion or visible pneumothorax. No definite acute osseous findings. Multilevel thoracic spondylosis. IMPRESSION: 1. PULMONARY VASCULATURE APPEARS MILDLY CONGESTED. 2. OTHERWISE, NO ACUTE/FOCAL LUNG FINDINGS. NO DEFINITE ACUTE CHEST FINDINGS. JOB NUMBER: [id number] MTDD
== END 2018-06-26 16:02 | disposition home or self-care (01) ==
LOC: ER 13:59
DX: R55 Syncope and collapse (principal); I10 Essential (primary) hypertension
CPT/HCPCS: 71046; 80053; 85025; 93005; 93010; 99284

== ENCOUNTER 2019-02-19 14:21 | Emergency (ER) | payer MEDICARE, MEDICAID ==
[2019-02-19 15:06] LABS: ABSOLUTE NEUTROPHIL COUNT 3.36; BASO % 0.5 % (0-6); EOS % 1.2 % (0-6); GRAN % 43.8 % (47-80); HEMATOCRIT 38.7 % (35.0-47.0); HEMOGLOBIN 12.9 gm/dl (11.6-16.0); LYMPH % 46.7 % (16-45); MEAN CELL VOLUME 86.8 fl (81-97); MEAN CORPUSCULAR HEMOGLOBIN 28.9 pg (27-33); MEAN CORPUSCULAR HGB CONC 33.3 g/dl (32-36); MEAN PLATELET VOLUME 11.5 fl (7.4-10.4); MONO % 7.8 % (0-9); PLATELET COUNT 247 K/uL (130-400); RED BLOOD COUNT 4.46 M/uL (3.80-5.40); RED CELL DISTRIBUTION WIDTH 13.1 % (11.5-14.5); WHITE BLOOD COUNT W/O DIFF 7.7 K/uL (4.2-12.2)
[2019-02-19 15:19] LABS: BILIRUBIN,TOTAL 2.6 mg/dL (0.2-1.0)
[2019-02-19 15:20] LABS: TOTAL PROTEIN 6.4 g/dL (6.6-8.7)
[2019-02-19 15:24] LABS: BILIRUBIN,DIRECT 0.4 mg/dL (0-0.3)
[2019-02-19 15:25] LABS: ALBUMIN 3.9 g/dL (4.0-5.0)
[2019-02-19 15:26] LABS: CKMB 2.6 ng/mL (<3.77)
--- NOTE | 2019-02-19 15:43 | Emergency Department Record ---
History of Present Illness - General Chief Complaint: Dizziness Stated Complaint: DIZZY Time Seen by Provider: 02/19/19 14:30 Source: Patient, EMS Mode of Arrival: EMS Limitations: No limitations - History of Present Illness Initial Comments: pt was on commode when she felt faint and had near syncope. 911 was called and paramedics found her to be pasty garcia and with a bp of 84/ . this has happened to her before. she has never had a complete workup to evaluate this recurring problem MD Complaint: Near syncope Timing: Sudden onset Description: Lightheadedness, Near-syncope History of Same: Yes History of Trauma: No Improves With: Nothing Worsens With: Nothing Associated Symptoms: Denies other symptoms - [place] Coma Scale Eye Response: (4) Open spontaneously Motor Response: (6) Obeys commands Verbal Response: (5) Oriented Imani Total: 15 - Related Data Allergies Allergy/AdvReac Type Severity Reaction Status Date / Time amoxicillin [Amoxicillin] Allergy Severe ANAPHYLAXIS Verified 02/19/19 14:44 amoxicillin trihydrate Allergy Severe ANAPHYLAXIS Verified 02/19/19 14:44 [From Trimox] Travel Screening - Travel/Exposure Within Last 30 Days Have you traveled within the last 30 days?: No Review of Systems Reviewed: No additional complaints except as noted below Constitutional: Reports: As per HPI. Denies: Chills, Fever, Malaise, Night sweats, Weakness, Weight change Eyes: Reports: As per HPI. Denies: Eye discharge, Eye pain, Photophobia, Vision change ENT: Reports: As per HPI. Denies: Congestion, Dental pain, Ear pain, Epistaxis, Hearing loss, Throat pain Respiratory: Reports: As per HPI. Denies: Cough, Dyspnea, Hemoptysis, Stridor, Wheezes Cardiovascular: Reports: As per HPI. Denies: Arrhythmia, Chest pain, Dyspnea on exertion, Edema, Murmurs, Orthopnea, Palpitations, Paroxysmal nocturnal dyspnea, Rheumatic Fever, Syncope Endocrine: Reports: As per HPI. Denies: Fatigue, Heat or cold intolerance, Polydipsia, Polyuria Gastrointestinal: Reports: As per HPI. Denies: Abdominal pain, Constipation, Diarrhea, Hematemesis, Hematochezia, Melena, Nausea, Vomiting Genitourinary: Reports: As per HPI. Denies: Abnormal menses, Discharge, Dyspareunia, Dysuria, Frequency, Hematuria, Incontinence, Retention, Urgency Musculoskeletal: Reports: As per HPI. Denies: Arthralgia, Back pain, Gout, Joint swelling, Myalgia, Neck pain Skin: Reports: As per HPI. Denies: Bruising, Change in color, Change in velásquez ir/nails, Lesions, Pruritus, Rash Neurological: Reports: As per HPI. Denies: Abnormal gait, Confusion, Headache, Numbness, Paresthesias, Seizure, Tingling, Tremors, Vertigo, Weakness Psychiatric: Reports: As per HPI. Denies: Anxiety, Auditory hallucinations, Depression, Homicidal thoughts, Suicidal thoughts, Visual hallucinations Hematological/Lymphatic: Reports: As per HPI. Denies: Anemia, Blood Clots, Easy bleeding, Easy bruising, Swollen glands Past Medical History - SOCIAL HISTORY Smoking Status: Never smoker Alcohol Use: None Drug Use: None - RESPIRATORY Hx Respiratory Disorders: Yes Hx Pneumonia: Yes - CARDIOVASCULAR Hx Cardio Disorders: Yes Hx CHF: Yes Hx Hypertension: Yes - NEURO Hx Neuro Disorders: Yes Hx Headaches: Yes Hx Neuropathy: Yes - GI Hx GI Disorders: Yes Hx Abdominal Pain: Yes Hx Pancreatitis: Yes Hx Wt Loss/Wt Gain: Yes (lost 85 pounds over 6 years) - Hx Genitourinary Disorders: Yes Hx Bladder Problem: Yes (urgency) - ENDOCRINE Hx Endocrine Disorders: Yes Hx Thyroid Disease: Yes (HYPO) - MUSCULOSKELETAL Hx Musculoskeletal Disorders: Yes 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) - PSYCH Hx Psych Problems: Yes Hx Anxiety: Yes - HEMATOLOGY/ONCOLOGY Hx Hematology/Oncology Disorders: No Family Medical History Any Significant Family History?: Yes Family Hx Comment (NOT TO BE USED IN PLACE OF ITEMS BELOW): DIABETES Hx Cancer: Father Hx Dementia: Father, Mother Hx Diabetes: Mother Hx Heart Disease: Father Hx Resp Disorders: Father, Brother/Sister Hx Seizures: Brother/Sister Hx Stroke: Father *Stroke Comment: TIA Physical Exam - General General Appearance: Alert, Oriented x3, Cooperative, Mild distress - Head Head exam: Normal inspection - Eye Eye exam: Normal appearance, PERRL, EOMI Pupils: Normal accommodation - ENT ENT exam: Normal exam, Mucous membranes moist, Normal external ear exam, Normal orophraynx Ear exam: Normal external inspection. negative: External canal tenderness Nasal Exam: Normal inspection. negative: Discharge, Sinus tenderness Mouth exam: Normal external inspection, Tongue normal Teeth exam: Normal inspection. negative: Dental caries Throat exam: Normal inspection. negative: Tonsillar erythema, Tonsillar exudate - Neck Neck exam: Normal inspection, Full ROM. negative: Tenderness - Respiratory Respiratory exam: Normal lung sounds bilaterally. negative: Respiratory distress - Cardiovascular Cardiovascular Exam: Regular rate, Normal rhythm, Normal heart sounds - GI/Abdominal GI/Abdominal exam: Soft, Normal bowel sounds. negative: Tenderness - Rectal Rectal exam: Deferred - exam: Deferred - Extremities Extremities exam: Normal inspection, Full ROM, Normal capillary refill. negative: Tenderness - Back Back exam: Reports: Normal inspection, Full ROM. Denies: Muscle spasm, Rash noted, Tenderness - Neurological Neurological exam: Alert, CN II-XII intact, Normal gait, Oriented X3 - Psychiatric Psychiatric exam: Normal affect, Normal mood - Skin Skin exam: Dry, Intact, Normal color, Warm Course Vital Signs 02/19/19 02/19/19 14:28 15:36 Temperature 97.8 F Pulse Rate 68 Pulse Rate [ 85 [place] ] Respiratory 20 16 Rate Blood Pressure 94/48 Blood Pressure 117/74 [Left Arm] Pulse Ox 97 98 - Reevaluation(s) Reevaluation #1: 02/19/19 17:13 pt had no arrythmias while here. admission was recommended but pt refused. pt d/w dr castro. no holter monitors available Medical Decision Making - Lab Data Result diagrams: 02/19/19 14:05 02/19/19 14:05 Lab Results 02/19/19 02/19/19 02/19/19 Range/Units 14:05 14:05 14:05 WBC 7.7 (4.2-12.2) K/uL RBC 4.46 (3.80-5.40) M/uL Hgb 12.9 (11.6-16.0) gm/dl Hct 38.7 (35.0-47.0) % MCV 86.8 (81-97) fl MCH 28.9 (27-33) pg MCHC 33.3 (32-36) g/dl RDW 13.1 (11.5-14.5) % Plt Count 247 (130-400) K/uL MPV 11.5 H (7.4-10.4) fl Gran % 43.8 L (47-80) % Lymphocytes % 46.7 H (16-45) % Monocytes % 7.8 (0-9) % Eosinophils % 1.2 (0-6) % Basophils % 0.5 (0-6) % Absolute Neutrophils 3.36 D-Dimer 0.40 (0-0.59) mg/L FEU Sodium 133 L (136-145) mmol/L Potassium 3.3 L (3.4-4.5) mmol/L Chloride 96 L (98-107) mmol/L Carbon Dioxide 25.0 (22-29) mmol/L Anion Gap 12.0 (7-16) BUN 15 (8-23) mg/dL Creatinine 1.0 H (0.5-0.9) mg/dL Estimated GFR 59 mL/min Random Glucose 116 H (74-109) mg/dL Calcium 10.3 H (8.8-10.2) mg/dL Total Bilirubin 2.60 H (0.2-1.0) mg/dL Direct Bilirubin 0.4 H (0-0.3) mg/dL AST 27 (10.0-35.0) U/L ALT 15 (<33) U/L Alkaline Phosphatase 72 (35-104) U/L CK-MB (CK-2) 2.6 (<3.77) ng/mL Troponin T (0-0.010) ng/mL Total Protein 6.4 L (6.6-8.7) g/dL Albumin 3.9 L (4.0-5.0) g/dL 02/19/19 Range/Units 14:05 WBC (4.2-12.2) K/uL RBC (3.80-5.40) M/uL Hgb (11.6-16.0) gm/dl Hct (35.0-47.0) % MCV (81-97) fl MCH (27-33) pg MCHC (32-36) g/dl RDW (11.5-14.5) % Plt Count (130-400) K/uL MPV (7.4-10.4) fl Gran % (47-80) % Lymphocytes % (16-45) % Monocytes % (0-9) % Eosinophils % (0-6) % Basophils % (0-6) % Absolute Neutrophils D-Dimer (0-0.59) mg/L FEU Sodium (136-145) mmol/L Potassium (3.4-4.5) mmol/L Chloride (98-107) mmol/L Carbon Dioxide (22-29) mmol/L Anion Gap (7-16) BUN (8-23) mg/dL Creatinine (0.5-0.9) mg/dL Estimated GFR mL/min Random Glucose (74-109) mg/dL Calcium (8.8-10.2) mg/dL Total Bilirubin (0.2-1.0) mg/dL Direct Bilirubin (0-0.3) mg/dL AST (10.0-35.0) U/L ALT (<33) U/L Alkaline Phosphatase (35-104) U/L CK-MB (CK-2) (<3.77) ng/mL Troponin T < 0.010 (0-0.010) ng/mL Total Protein (6.6-8.7) g/dL Albumin (4.0-5.0) g/dL Disposition Disposition: Other Clinical Impression: Near syncope Hypotension Qualifiers: Hypotension type: unspecified hypotension type Qualified Code(s): I95.9 - Hypotension, unspecified Disposition: Against Medical Advice Condition: (2) Stable Instructions: Near Syncope (ED) Additional Instructions: follow up with dr castro on friday. you may return at any time. rise slowly when standing Forms: Patient Portal Access Quality - Quality Measures Quality Measures: N/A - Blood Pressure Screening Does Patient Have Any of the Following: No Blood Pressure Classification: Normal BP Reading Systolic Measurement: 94 Diastolic Measurement: 48 Screening for High Blood Pressure: < Normal BP, F/U Not Required > [G8783]
--- NOTE | 2019-02-21 19:58 | CT SCAN REPORT ---
EXAM: CT SCAN HEAD WO CONTRAST HISTORY: DIZZINESS. TECHNIQUE: Noncontrast images of the brain are obtained. FINDINGS: Brain volume is normal. There is no evidence of hemorrhage, mass effect, midline shift, or acute transcortical infarction. No extraaxial fluid collections are seen. The ventricles and basal cisterns are preserved. IMPRESSION: NEGATIVE CT SCAN OF THE BRAIN. JOB NUMBER: [id number] MTDD
--- NOTE | 2019-02-21 19:59 | RADIOLOGY REPORT ---
EXAM: CHEST 2 VIEWS HISTORY: DIZZINESS. TECHNIQUE: PA and lateral views of the chest are obtained. FINDINGS: The lungs are clear. Heart and pulmonary vessels are normal. IMPRESSION: NEGATIVE. JOB NUMBER: [id number] [facility]
== END 2019-02-19 17:43 | disposition left against medical advice (07) ==
LOC: ER 14:21
DX: R55 Syncope and collapse (principal); I95.9 Hypotension, unspecified; I10 Essential (primary) hypertension; I50.9 Heart failure, unspecified
CPT/HCPCS: 70450; 71046; 80048; 80076; 82553; 84484; 85025; 85379; 93005; 93010; 99284